=== PATIENT | female | born 1975 | race Caucasian/White ===

== ENCOUNTER 2017-12-28 18:47 | Emergency (ER) | payer OTHER ==
[~2017-12-28] VITALS: Ht 165.1 cm; Wt 95.3 kg
[~2017-12-28 18:47] MED LIST: AMBIEN 5 MG TABL5 M1 PO; CARVEDILOL25 MG PO; CLONIDINE0.1 PO; IMITREX4 MG/0.51 SQ; KLONOPIN0.5 MG PO; LAMICTAL100 MG PO; NIACIN500 MG PO; PROPRANOLOL 20M20 M1 PO; PROTONIX40 M1 PO; PROZAC20 MG PO; ROBAXIN500 MG PO; SAVELLA50 MG PO; VISTARIL50 MG PO; ZOFRAN4 MG PO
[2017-12-28] MEDS ORDERED: ATIVAN0.5 MG (19:05)
[2017-12-28] MEDS ORDERED: TOPROL XL25 MG (19:06)
[2017-12-28] MEDS ORDERED: NORCO 5-325 TA1 EAC1 PO (19:46)
[2017-12-28] MEDS ORDERED: HYDROCODON-ACE1 EAC7 PO (19:53)
[2017-12-28 20:37] VITALS: BP 126/59
== END 2017-12-28 20:39 | disposition home or self-care (01) ==
LOC: M.ERS 18:47
DX: S92.251A Displaced fracture of navicular [scaphoid] of right foot, initial encounter for closed fracture (principal); W19.XXXA Unspecified fall, initial encounter; Y93.89 Activity, other specified; Y92.89 Other specified places as the place of occurrence of the external cause; Y99.8 Other external cause status; F41.9 Anxiety disorder, unspecified; Z90.49 Acquired absence of other specified parts of digestive tract; Z90.710 Acquired absence of both cervix and uterus; F32.9 Major depressive disorder, single episode, unspecified